=== PATIENT | male | born 1990 | race Two or more races ===

== ENCOUNTER 2016-06-19 21:40 | Emergency (ER) | payer SELFPAY ==
[~2016-06-19] VITALS: Ht 182.9 cm; Wt 106.6 kg
[2016-06-19] MEDS ORDERED: NKM (21:51)
[2016-06-19] MEDS ORDERED: LORazepam 1mg tab ORAL ONE (23:00)
[2016-06-19] MEDS ORDERED: LORazepam Inj 2mg/ml 1ml IV ONE (23:30)
[2016-06-20] MEDS ORDERED: MECLIZINE HCL25 MG ORAL (00:35)
[2016-06-20 00:45] VITALS: BP 134/86
--- NOTE | 2016-06-20 02:23 | Emergency Room Report ---
History of Present Illness General Chief Complaint: Dizziness Source: Patient Present Illness HPI 26YOM walk-in with acute vertigo since waking up from nap at 8pm. States worse when lying on left side, sitting up. Feels like room is spinning. Denies difficulty ambulating, weakness in extremities, headache, neck pain, fever/ chills. Never had this before. Denies trauma. Allergies: Coded Allergies: No Known Allergies (Unverified , 06/19/16) Patient History Past Medical History: none Past Surgical History: none Pertinent Family History: none Social History: Denies: alcohol use, drug use, smoking Immunizations: UTD Reviewed Nursing Documentation: PMH: Agreed, PSxH: Agreed Nursing Documentation-PMH Past Medical History: No Stated History Review of Systems All Other Systems: negative except mentioned in HPI Physical Exam Vital Signs Date Time Temp Pulse Resp B/P Pulse Ox O2 Delivery O2 Flow Rate FiO2 06/19/16 21:48 97.9 66 16 148/80 98 Room Air Sp02 EP Interpretation: reviewed, normal General Appearance: normal inspection, well appearing, no apparent distress, alert, GCS 15, non-toxic Head: normocephalic, atraumatic Eyes: bilateral eye EOMI, bilateral eye PERRL, bilateral eye other - Horoztonal nystagus ENT: normal ENT inspection, hearing grossly normal, normal voice, other - + yuniel -hallpike reproduces vertigo on left side with severe nausea Neck: normal inspection, full range of motion, supple, no bony tend Respiratory: normal inspection, lungs clear, normal breath sounds, no respiratory distress, no retraction, no wheezing Cardiovascular #1: regular rate, rhythm, no edema Gastrointestinal: normal inspection, normal bowel sounds, non tender, soft, no guarding, no hernia Genitourinary: no CVA tenderness Musculoskeletal: normal inspection, back normal, normal range of motion, Wilfredo' s Sign negative Neurologic: normal inspection, alert, oriented x3, responsive, glass polisher III-XII nml as tested, motor strength/tone normal, speech normal Psychiatric: normal inspection, judgement/insight normal, mood/affect normal Skin: normal inspection, normal color, no rash Lymphatic: normal inspection Medical Decision Making Diagnostic Impression: Primary Impression: Benign paroxysmal positional vertigo of left ear ER Course Likely BPPV VSS. Afebrile. No focal neuro deficits or ataxia to suggest central neuro process IM ativan and PO zofran given Barry maneuver attempted to reposition likely otolith as cause of vertigo with mild improvement Rx Meclizine Advised PMD followup for ENT referral if worsens Last Vital Signs Date Time Temp Pulse Resp B/P Pulse Ox O2 Delivery O2 Flow Rate FiO2 06/20/16 00:45 97.9 82 16 134/86 98 Room Air Status: improved Disposition: HOME, SELF-CARE Condition: Improved Scripts Meclizine Hcl* (MECLIZINE*) 25 Mg Tablet 25 MG ORAL THREE TIMES A DAY for 7 Days, #30 TAB Prov: ERNIE ELENA M.D. 06/20/16 Patient Instructions: Vertigo Additional Instructions: - Take Meclizine up to 3x a day for vertigo - Follow up with an ENT specialist when you get insurance - If symptoms do not improve with meclizine, return to ERNIE ELENA M.D. June 20, 2016 02:22
== END 2016-06-20 00:45 | disposition home or self-care (01) ==
LOC: EMR 23:00
DX: H81.12 Benign paroxysmal vertigo, left ear (principal)
CPT/HCPCS: 80300; 96374